=== PATIENT | female | born 1980 | race African-American/Black ===

== ENCOUNTER 2020-12-26 14:04 | Emergency (ER) | payer OTHER ==
--- OUTSIDE RECORDS SUMMARY | 2020-12-26 14:07 | XMS REPORT | Continuity of Care Document ---
:1980 Author Organization [facility] t Address [address] [place] [address] Care Team Providers Name Role Phone Draw, Lab Attending Clinician Unavailable Problems This patient has no known problems. Allergies, Adverse Reactions, Alerts Allergy Allergy Status Severity Reaction(s) Onset Inactive Treating Comm ents Source Name Type Date Date Clinician Lisinopr Allergy Active [facility] [place] [facility] Metformi Allergy Active [place] [facility] Social History Smoking Status Start Date Stop Date Source Never Smoker [facility] Medications Ordered Filled Start Stop Current Ordering Indication Dosage Frequency Signature Comments Components Source Medication Medication Date Date Medication? Clinician (SIG) Name Name George Vazquez 5 No 1 Q1D George 5 [place] mg tablet mg tablet mg tablet da Take 1 Take 1 Take 1 [facility] tablet tablet tablet al every day every day every day Health by oral by oral by oral Outrea c route. route. route. h Program gabapentin gabapentin No 1capsul Q1D gabapentin [place] 100 mg 100 mg e(s) 100 mg da capsule capsule capsule [facility] p Take 1 Take 1 Take 1 al capsule capsule capsule Health every day every day every day Outreac by oral by oral by oral h route. route. route. Program gabapentin gabapentin No 1capsul Q1D gabapentin [place] 300 mg 300 mg e(s) 300 mg da capsule capsule capsule [facility] p Take 1 Take 1 Take 1 al capsule capsule capsule Health every day every day every day Outreac by oral by oral by oral h route. route. route. Program ibuprofen ibuprofen No 1 ibuprofen [place] 800 mg 800 mg 800 mg da tablet Take tablet Take tablet [facility] 1 tablet as 1 tablet as Take 1 al needed by needed by tablet as Health oral route. oral route. needed by Outreac oral h route. Program losartan losartan No 1 Q1D losartan [place] 100 100 100 da mg-hydrochl mg-hydrochl mg-hydroch [facility] orothiazide orothiazide lorothiazi al 12.5 mg 12.5 mg de 12.5 mg Hea lth tablet Take tablet Take tablet Outreac 1 tablet 1 tablet Take 1 h every day every day tablet Pro gram by oral by oral every day route. route. by oral route. megestrol megestrol No megestrol [place] 40 mg 40 mg 40 mg da tablet Take tablet Take tablet [facility] 1 tablet 1 tablet Take 1 al every day every day tablet Hea lth by oral by oral every day Outr eac route. route. by oral h route. Program Novolin R Novolin R No Novolin R [place] Flexpen 30 Flexpen 30 Flexpen 30 da units prior units prior units [facility] to each to each prior to al meal meal each meal Health Outreac h Program Ozempic 1 Ozempic 1 No Ozempic 1 [place] mg/dose (2 mg/dose (2 mg/dose (2 da mg/1.5 mL) mg/1.5 mL) mg/1.5 mL) [facility] subcutaneou subcutaneou subcutaneo al s pen s pen us pen Health injector injector injector Out reac h Program potassium potassium No potassium [place] chloride ER chloride ER chloride da 10 mEq 10 mEq ER 10 mEq [facility] p tablet,exte tablet,exte tablet,ext al nded nded ended Health release release release Outrea c h Program tramadol 50 tramadol 50 No 1 tramadol [place] mg tablet mg tablet 50 mg da Take 1 Take 1 tablet [facility] tablet as tablet as Take 1 al needed by needed by tablet as Health oral route. oral route. needed by Outreac oral h route. Program Tresiba Tresiba No Tresiba [place] FlexTouch FlexTouch FlexTouch da U-200 U-200 U-200 [facility] insulin 200 insulin 200 insulin al unit/mL (3 unit/mL (3 200 Hea lth mL) mL) unit/mL (3 Outreac subcutaneou subcutaneou mL) h s pen 100 s pen 100 subcutaneo Program units a day units a day us pen 100 units a day Vital Signs Vital Name Observation Time Observation Value Comments Source BP Diastolic 2019-10-05 00:00:00 92 mm[Hg] [facility] Height 2019-10-05 00:00:00 61 [in_i] [facility] BMI (Body Mass 2019-10-05 00:00:00 47 kg/m2 [facility] Index) Health Outreach Program BP Systolic 2019-10-05 00:00:00 170 mm[Hg] [facility] Body Weight 2019-10-05 00:00:00 249 [lb_av] [facility] Procedures Procedure Date / Time Performed Performing Clinician Sourc e Tubal Ligation [facility] Delivery [facility] Plan of Care Planned Activity Planned Date Details Comments Source Diagnostic Test Pending 2019-10-05 CBC w/ auto diff [facility] 00:00:00 [code = CBC w/ Health Outrea ch auto diff] Program Instructions [facility] Encounters Start End Encounter Admission Attending Care Care Encounter Source Date/Time Date/Time Type Type Clinicians Facility Department ID 2020-05-09 2020-05-09 Cardiac Monitor Technician Yesenia, [facility] [id number] 08:55:34 09:10:34 Visit [facility] [id number] [place] [id number] [place] [id number] Medical [facility] Office Building 2019-10-05 2019-10-05 Johan [place] - [id number] M [facility] 00:00:00 00:00:00 Praful Gamble MD: [facility] [address] [facility] [id number] h , Ph. Program Results This patient has no known results.
--- NOTE | 2020-12-26 15:49 | ER ---
Nurse's Notes [facility] Name: Irasema Gottlieb Age: 40 yrs Sex: Female : 1980 Arrival Date: 12/26/2020 Time: 14:10 Bed 15 Private MD: Diagnosis: Cellulitis left Labia Majora Presentation: 12/26 14:35 Chief complaint: Patient states: L vaginal abscess for 3 days. No drainage or fever. ll1 Site is hot to touch. Was sent home from work today. Coronavirus screen: Client denies travel out of the [place] in the last 14 days. At this time, the client does not indicate any symptoms associated with coronavirus-19. Ebola Screen: Patient denies travel to an Ebola-affected area in the 21 days before illness onset. Initial Sepsis Screen: Does the patient meet any 2 criteria? HR > 90 bpm. No. Patient's initial sepsis screen is negative. Does the patient have a suspected source of infection? Yes: Skin breakdown/wound. Risk Assessment: Do you want to hurt yourself or someone else? Patient reports no desire to harm self or others. Onset of symptoms was December 24, 2020. 14:35 Method Of Arrival: Ambulatory ll1 14:35 Acuity: SARITA 3 ll1 Historical: - Allergies: 14:37 metformin; ll1 14:37 Pineapple; ll1 - PMHx: 14:37 Diabetes - NIDDM; Hypertension; ll1 - PSHx: 14:37 ; Tubal ligation; ll1 - Immunization history:: Adult Immunizations Client reports receiving the 2nd dose of the Covid vaccine, Flu vaccine is up to date. - Social history:: Smoking status: Patient reports the use of cigarette tobacco products, smokes one-half pack cigarettes per day. Screenin:30 Abuse screen: Denies threats or abuse. Denies injuries from another. Nutritional jl7 screening: No deficits noted. Tuberculosis screening: No symptoms or risk factors identified. Fall Risk None identified. Assessment: 15:30 General: Appears in no apparent distress. uncomfortable, Behavior is calm, cooperative, jl7 appropriate for age. Pain: Complains of pain in pelvis Pain currently is 10 out of 10 on a pain scale. Neuro: Level of Consciousness is awake, alert, obeys commands, Oriented to person, place, time, situation. Cardiovascular: Patient's skin is warm and dry. Respiratory: Airway is patent Respiratory effort is even, unlabored, Respiratory pattern is regular, symmetrical. Derm: Skin is pink, warm \T\ dry. Abscess located on pelvis. 16:05 Reassessment: Pt will be discharged after shot time. jl7 Vital Signs: 14:35 BP 157 / 88; Pulse 93; Resp 18; Temp 98.2; Pulse Ox 100% ; Weight 115.21 kg; Height 5 ll1 ft. 1 in. (154.94 cm); Pain 10/10; 14:35 Body Mass Index 47.99 (115.21 kg, 154.94 cm) ll1 ED Course: 14:10 Patient arrived in ED. mr 14:37 Triage completed. ll1 14:37 Arm band placed on. ll1 14:39 Juan Antonio Lucero RN is Primary Nurse. jl7 14:46 William House PA is PHCP. jr8 14:46 Robert Dover MD is Attending Physician. jr8 14:46 PHCP role handed off by William House PA pm1 14:46 Isiah Munson NP is PHCP. pm1 14:46 William House PA is PHCP. jr8 15:30 Patient has correct armband on for positive identification. Placed in gown. Bed in low jl7 position. Call light in reach. Side rails up X 1. Pulse ox on. NIBP on. Warm blanket given. 16:04 No provider procedures requiring assistance completed. Patient did not have IV access jl7 during this emergency room visit. Administered Medications: 16:00 Drug: Rocephin (cefTRIAXone) 1 grams Route: IM; Site: right vastus lateralis; jl7 16:15 Follow up: Response: No adverse reaction jl7 Outcome: 15:49 Discharge ordered by . jamal 16:20 Discharged to home ambulatory. 16:20 Condition: good 16:20 Discharge instructions given to patient, Instructed on discharge instructions, follow up and referral plans. Demonstrated understanding of instructions, follow-up care, medications, Prescriptions given X 1. 16:20 Patient left the ED. Signatures: Goldie Campo Shelby, RN RN William House PA PA jrIsiah Kowalski, STEEL PLATE PRINTER STEEL PLATE PRINTER pm1 Juan Antonio Lucero, RN RN jl7 Siddhartha Melo RN RN ll1 Corrections: (The following items were deleted from the chart) 16:03 16:00 Rocephin (cefTRIAXone) 1 grams IM in left vastus lateralis jl7 jl7
--- NOTE | 2020-12-26 15:49 | EDPHYS ---
Physician Documentation [facility] Name: Irasema Gottlieb Age: 40 yrs Sex: Female : 1980 Arrival Date: 12/26/2020 Time: 14:10 Bed 15 Private MD: ED Physician Robert Dover HPI: 12/26 15:42 This 40 yrs old Black Female presents to ER via Ambulatory with complaints of Abscess. jr8 15:42 Onset: The symptoms/episode began/occurred gradually, 2 day(s) ago. Possible cause(s): jr8 unknown. Associated signs and symptoms: Pertinent positives: drainage. Modifying factors: the symptoms are alleviated by nothing, the symptoms are aggravated by walking, pressure, sitting, squeezing the lesion and expressing the contents, touching. Severity of symptoms: At their worst the symptoms were mild, in the emergency department the symptoms are unchanged. The patient has experienced similar episodes in the past, a few times. The patient has not recently seen a physician. Patient stated that she has had abscesses in past. Sometimes she is able to get rid of them on her own. Stated that two days ago felt another lump. Has had some drainage from area but now having pain with ambulation and trouble working secondary to pain and swelling . Historical: - Allergies: 14:37 metformin; ll1 14:37 Pineapple; ll1 - PMHx: 14:37 Diabetes - NIDDM; Hypertension; ll1 - PSHx: 14:37 ; Tubal ligation; ll1 - Immunization history:: Adult Immunizations Client reports receiving the 2nd dose of the Covid vaccine, Flu vaccine is up to date. - Social history:: Smoking status: Patient reports the use of cigarette tobacco products, smokes one-half pack cigarettes per day. ROS: 15:42 Constitutional: Negative for fever, chills, and weight loss, : Negative for injury, jr8 bleeding, discharge, and swelling. 15:42 Skin: Positive for swelling, of the pelvis. 15:42 All other systems are negative. Exam: 15:42 Cardiovascular: Regular rate and rhythm with a normal S1 and S2. No gallops, murmurs, jr8 or rubs. Normal PMI, no JVD. No pulse deficits. Respiratory: Lungs have equal breath sounds bilaterally, clear to auscultation and percussion. No rales, rhonchi or wheezes noted. No increased work of breathing, no retractions or nasal flaring. Abdomen/GI: Soft, non-tender, with normal bowel sounds. No distension or tympany. No guarding or rebound. No evidence of tenderness throughout. Skin: Warm, dry with normal turgor. Normal color with no rashes, no lesions, and no evidence of cellulitis. MS/ Extremity: Pulses equal, no cyanosis. Neurovascular intact. Full, normal range of motion. Neuro: Awake and alert, GCS 15, oriented to person, place, time, and situation. Cranial nerves II-XII grossly intact. Motor strength 5/5 in all extremities. Sensory grossly intact. Cerebellar exam normal. Normal gait. 15:42 : Patient has mild swelling with induration noted to left lower labia majora with extension to lateral external well. No palpable fluctuance noted to inner or outer labia. No expressed drainage noted. Vital Signs: 14:35 BP 157 / 88; Pulse 93; Resp 18; Temp 98.2; Pulse Ox 100% ; Weight 115.21 kg; Height 5 ll1 ft. 1 in. (154.94 cm); Pain 10/10; 14:35 Body Mass Index 47.99 (115.21 kg, 154.94 cm) ll1 MDM: 14:46 Patient medically screened. [facility] 15:42 Data reviewed: vital signs, nurses notes, and as a result, I will discharge patient. jr8 Data interpreted: Pulse oximetry: on room air is 100 %. Interpretation: normal. Counseling: I had a detailed discussion with the patient and/or guardian regarding: the historical points, exam findings, and any diagnostic results supporting the discharge/admit diagnosis, the need for outpatient follow up, a family practitioner, to return to the emergency department if symptoms worsen or persist or if there are any questions or concerns that arise at home. ED course: Discussed with patient that there is no abscess at this time. That she is infected and has a degree of induration/cellulitis present. Would be best to treat with Abx at this time without doing I\T\D. Also discussed with her that this doesn't mean an abscess could not continue to form in that area. Would need close f/u and if it were to form or worsen to come back to ED for further evaluation. Otherwise to f/u with PCP. Patient good with this decision and will follow current treatment plan . Administered Medications: 16:00 Drug: Rocephin (cefTRIAXone) 1 grams Route: IM; Site: right vastus lateralis; jl7 16:15 Follow up: Response: No adverse reaction jl7 Disposition: 16:43 Co-signature as Attending Physician, Robert Dover MD. rn Disposition: 12/26/20 15:49 Discharged to Home. Impression: Cellulitis left Labia Majora . - Condition is Stable. - Discharge Instructions: Skin Abscess, Cellulitis, Adult. - Prescriptions for Bactrim DS 800- 160 mg Oral Tablet - take 1 tablet by ORAL route every 12 hours for 10 days; 20 tablet. - Medication Reconciliation Form, Thank You Letter, Antibiotic Education, Prescription Opioid Use form. - Follow up: Private Physician; When: 48 Hours; Reason: Wound Recheck, Recheck today's complaints, Continuance of care, Re-evaluation by your physician. - Problem is new. - Symptoms have improved. Signatures: Robert Dover MD MD rn Smirch, Shelby RN RN ss William House, WILLIAMS PA jr8 Juan Antonio Lucero RN RN jl7 Siddhartha Melo RN RN ll1 Corrections: (The following items were deleted from the chart) 16:20 15:49 12/26/2020 15:49 Discharged to Home. Impression: Cellulitis left Labia Majora . ss Condition is Stable. Forms are Medication Reconciliation Form, Thank You Letter, Antibiotic Education, Prescription Opioid Use. Follow up: Private Physician; When: 48 Hours; Reason: Wound Recheck, Recheck today's complaints, Continuance of care, Re-evaluation by your physician. Problem is new. Symptoms have improved. jr8
[2020-12-26] MEDS ORDERED: WATER FOR INJ,STERILE 10 ML ONE (16:06)
[2020-12-26] MEDS ORDERED: CEFTRIAXONE 1000 MG/VIAL ONE (16:06)
[2020-12-26 16:23] VITALS: BP 157/88; TEMP 98.2; O2SAT 100
== END 2020-12-26 16:20 | disposition home or self-care (01) ==
LOC: ER 14:04
DX: N76.2 Acute vulvitis (principal); Z88.8 Allergy status to other drugs, medicaments and biological substances; F17.210 Nicotine dependence, cigarettes, uncomplicated
CPT/HCPCS: 96372; 99283